=== PATIENT | female | born 1955 | race Caucasian/White ===

== ENCOUNTER 2022-08-02 18:35 | Emergency (ER) | payer MEDICARE, OTHER, SELFPAY ==
[2022-08-02 19:14] VITALS: BP 184/85; PULSE 71; RESP 16; TEMP 36.9; O2SAT 99; BMI 20.3
[2022-08-02 20:45] LABS: Bacteria Urine Moderate (10-30); Culture Indicated Urine Specimen Cultured; RBC Urine 5-10/HPF (0-5/HPF); Squamous Epithelial Cell Urine 1-5 /HPF (0-5/HPF); WBC Urine >100/HPF (0-5/HPF)
--- NOTE | 2022-08-02 22:25 | ED_ITS ---
HPI - Female Genitourinary General Chief complaint: Urogenital-Female Stated complaint: thinks another UTI Time Seen by Provider: 08/02/22 18:42 Source: patient Mode of arrival: Ambulatory History of Present Illness HPI Narrative: 66-year-old female nonsmoker with history of recent frequent urinary tract infections after becoming sexually active presents with a chief complaint of dysuria, frequency and urgency. She denies systemic complaints such as fever, chills nor nausea or vomiting. She has no back pain. She was most recently on antibiotics prescribed a few weeks ago but can not recall what it was Related Data Previous Rx's Medication Instructions Recorded ciprofloxacin HCl 500 mg tablet 500 mg PO BID #14 tabs 08/02/22 (Cipro) Review of Systems Review of Systems Narrative: GENERAL: Denies chills, fatigue, malaise, fever, sweats. HEENT: Denies sinus pain, ear pain, sore throat, difficulty swallowing, dizziness. RESPIRATORY: Denies dyspnea, cough, wheezing, hemoptysis, sputum. CARDIOVASCULAR: Denies chest pain, palpitations, orthopnea, edema, GASTROINTESTINAL: Denies nausea, vomiting, abdominal pain, diarrhea, constipation, melena. : see HPI MUSCULOSKELETAL: denies weakness, joint pain, or bony pain SKIN: Denies rash, skin lesions, or other NEUROLOGIC: Denies weakness, headache, numbness, change in speech, confusion, seizures, incoordination. PSYCHIATRIC: No concerning psychosocial issues. 12 point review of systems is negative except for those stated above Patient History alcohol intake frequency: 0-2 drinks per day Alcohol type: wine Substance Use Type: does not use Exam Narrative Exam Narrative: GEN: AOx3 and in mild distress EYES: Pupils are equal, round, and reactive to light and accommodation. Extraoccular muscles are intact bilaterally. There is no subconjunctival hemorrhage or exudate. CHEST: Lungs are clear to auscultation bilaterally and free of wheezes, rales, or rhonchi. Heart rate is regular rhythm, there are no murmurs, clicks, rubs, or gallops. There is no chest wall tenderness. ABD: Abdomen is soft and nontender. There is no guarding or rebound. Bowel sounds are normal in all 4 quadrants. There is no mass or organomegaly. BACK: no CVA tenderness EXT: Full painless ROM of all extremities with no loss of sensation or strength. SKIN: Warm, pink, and dry. No erythema or rash Initial Vital Signs Initial Vital Signs: Vital Signs Temperature 98.4 F 08/02/22 19:14 Pulse Rate 71 08/02/22 19:14 Respiratory Rate 16 08/02/22 19:14 Blood Pressure 184/85 H 08/02/22 19:14 Pulse Oximetry 99 08/02/22 19:14 Oxygen Delivery Method 08/02/22 19:14 Course Orders Ordered: Discontinued Medications Ciprofloxacin (Ciprofloxacin 250 Mg Tablet) 500 mg PO NOW ONE Stop: 08/02/22 23:08 Last Admin: 08/02/22 23:13 Dose: 500 mg Documented By: RODGER Vital Signs Vital signs: Vital Signs - 8 hr 08/02/22 19:14 Temperature 98.4 F Pulse Rate 71 Respiratory Rate 16 Blood Pressure 184/85 H Pulse Oximetry 99 Oxygen Delivery Method Room Air MDM - Female Genitourinary Medical Records Medical records narrative: records obtained from outside facility with urinalysis noting susceptibility to quinolones Lab Data Labs: Lab Results 08/02/22 Range/Units 19:28 Urine RBC 5-10/hpf H (0-5/HPF) Urine WBC >100/hpf H (0-5/HPF) Ur Squamous Epith Cells 1-5 /hpf (0-5/HPF) Urine Bacteria Moderate (10-30) H (None) Ur Culture Indicated? Specimen cultured Urine Dip Bedside Urine Glucose Negative Bedside Urine Bilirubin - Negative Bedside Urine Ketone - Negative Urine Specific [place] 1.010 Bedside Urine Occult Blood ++ Bedside Urine pH 6.0 Bedside Urine Protein - Negative Bedside Urine Urobilinogen - Negative Bedside Urine Nitrite - Negative Bedside Urine Leukocytes +++ 500 Esterase Discharge Plan Departure Patient Disposition: Home Clinical Impression: Acute UTI Instructions: DI for Urinary Tract Infection (UTI) Activity Restrictions/Additional Instructions: *You have been diagnosed with [urinary tract infection] *What to do: *Please continue to take your regular medications as directed. [ x] New medication prescriptions sent to your pharmacy: [[facility] ] [ ] New medication written as a paper prescription [ ] No new medications given *Please follow up with your primary care provider in 2-3 days, call for an appointment. Let them know you were seen in the Emergency Department and that we ask that you be seen in follow up. We will electronically transmit a record of today's note if your PCP is in our system * also, as we discussed it would seem reasonable to touch base with your urologist again given the frequency of these urine infections *Return to Emergency Department if you should have any new, worsening or dennis rning symptoms, such as [fever greater than 101 F, shaking chills, worsening pain, persistent vomiting or other bothersome symptoms] Prescriptions: New ciprofloxacin HCl [Cipro] 500 mg tablet 500 mg PO BID Qty: 14 0RF Visit Report Forms: Patient Portal/API
[2022-08-02] MEDS: CIPROFLOXACIN 250 MG TABLET 500 MG PO (23:13)
[2022-08-02 23:26] VITALS: BP 156/76; PULSE 77; RESP 17; O2SAT 98
--- NOTE | 2022-08-04 16:29 | PC.NURSE ---
patient called to verify results of urine culture. Informed patient the final culture was not complete. Updated patient she will be notified if her culture is positive for a bacteria not covered by current antibiotic
== END 2022-08-02 23:41 | disposition home or self-care (01) ==
PROVIDERS: Emergency Provider Emergency Medicine
DX: N39.0 Urinary tract infection, site not specified (principal)
CPT/HCPCS: 81003; 81015; 87077; 87086; 87186; 99283